=== PATIENT | male | born 1995 | race Caucasian/White ===

== ENCOUNTER 2023-03-07 17:21 | Emergency (ER) | payer BC ==
[2023-03-07] MEDS ORDERED: Acetaminophen/oxyCODONE 325-5 MG Tab PO ONE (17:40)
[2023-03-07] MEDS ORDERED: Silver Sulfadiazine 1% Crm 400 GM Jar TOP ONE (17:40)
[2023-03-07] MEDS ORDERED: Diphtheria,Pertussis(Acell),Tetanus Vaccine 0.5 ML Syringe IM ONE (17:40)
== END 2023-03-07 19:04 | disposition home or self-care (01) ==
LOC: MW.ED 17:21
DX: T22.252A Burn of second degree of left shoulder, initial encounter (principal); T21.23XA Burn of second degree of upper back, initial encounter; T31.0 Burns involving less than 10% of body surface; Z23 Encounter for immunization; X11.8XXA Contact with other hot tap-water, initial encounter
CPT/HCPCS: 16020; 90471; 90715; 99283; A9270

== ENCOUNTER 2023-03-08 13:56 | Emergency (ER) | payer BC | END 2023-03-08 15:35 | disposition home or self-care (01) | LOC: MW.ED 13:56 | DX: Z48.01 Encounter for change or removal of surgical wound dressing (principal) | CPT/HCPCS: 99282; 99283 ==